=== PATIENT | female | born 1965 | race Caucasian/White ===

== ENCOUNTER 2017-10-23 07:57 | Day surgery (SDC) | payer OTHER ==
[2017-10-18 10:41] LABS: BASOPHILS % (AUTO) 0.7 % (0-1); EOSINOPHILS # (AUTO) 0.2 X10'3 (0-0.9); EOSINOPHILS % (AUTO) 2.8 % (0-6); LYMPHOCYTES # (AUTO) 1.6 X10'3 (1.1-4.8); LYMPHOCYTES % (AUTO) 29.1 % (21-51); MEAN CORPUSCULAR HEMOGLOBIN 29.9 PG (27.0-31.0); MEAN CORPUSCULAR VOLUME 88.1 FL (78-98); MEAN PLATELET VOLUME 8.6 FL (7.4-10.4); MONOCYTES # (AUTO) 0.4 X10'3 (0-0.9); MONOCYTES % (AUTO) 6.8 % (2-12); NEUTROPHILS # (AUTO) 3.4 X10'3 (1.8-7.7); NEUTROPHILS % (AUTO) 60.6 % (42-75); PRE OP HEMOGLOBIN 14.6 g/dL (12.0-16.0); PRE OP PLATELET COUNT 214 X10'3 (140-440); RED BLOOD COUNT 4.88 X10'6 (4.20-5.60)
[2017-10-18 10:45] LABS: CLARITY,URINE Cloudy (Clear); COLOR,URINE Yellow (Yellow); GLUCOSE, URINE Negative (Neg); KETONES,URINE Negative (Neg); LEUKOCYTE ESTERASE ,URINE Small (Neg); NITRITES, URINE Negative (Neg); OCCULT BLOOD,URINE Negative (Neg); PROTEIN,URINE Negative (Neg)
[2017-10-18 10:50] LABS: UA COLLECTION TYPE NON-SPECIFIED
[2017-10-18 10:51] LABS: BACTERIA,URINE FEW /HPF (Neg); MUCUS STRANDS FEW /LPF (Neg); RBC,URINE NONE SEEN /HPF (0-2); SQUAMOUS EPITHELIAL CELL,UR FEW /LPF (FEW); WBC,URINE 0-4 /HPF (0-4)
[2017-10-18 10:57] LABS: ALBUMIN 4.1 G/DL (3.4-5.0); ALBUMIN/GLOBULIN RATIO 1.1 (1.1-1.5); ALKALINE PHOSPHATASE 35 IU/L (46-116); BLOOD UREA NITROGEN 13 MG/DL (7-18); BUN/CREATININE RATIO 18.3 (6.6-38.0); CALCIUM 9.4 MG/DL (8.5-10.1); CHLORIDE 107 MMOL/L (99-107); CREATININE 0.71 MG/DL (0.40-0.90); PRE OP ALT 26 U/L (30-65); PRE OP ANION GAP 7 (8-16); PRE OP AST 14 U/L (10-37); PRE OP BILIRUB, TOTAL 0.4 MG/DL (0.0-1.0); PRE OP GLUCOSE 97 MG/DL (70-104); PRE OP POTASSIUM 4.4 MMOL/L (3.4-5.1); PRE OP SODIUM 143 MMOL/L (135-145); TOTAL CARBON DIOXIDE 29.4 MMOL/L (24-32); TOTAL PROTEIN 7.8 G/DL (6.4-8.2); eGFR 86 ML/MIN
[~2017-10-23] VITALS: Ht 147.3 cm; Wt 58.5 kg
[2017-10-23] VITALS (13 sets, daily range): BP systolic 137–171; BP diastolic 75–90
[~2017-10-23 07:57] MED LIST: ASPI-1265 PO; CHOL400T14 PO; LISI1TAB11 PO; LOVA20TA2 PO; MULT-1085 PO; SYN0.088T PO; [UNRECOGNIZED DRUG - OTHER]; clindamycin-Cleocin 900mg/D5W 50 ML IV ONE; famotidine 20mg tablet PO ONE; ringers solution, lacted 1,000 ML IV SCH
[2017-10-23] MEDS ORDERED: BUPIVAcaine/PF 2.5 mg/ml (0.25%) 30ml vial ONE (09:16)
[2017-10-23] MEDS ORDERED: ceFAZolin 1000mg inj ONE (09:16)
[2017-10-23] MEDS ORDERED: midazolam 2 mg/2 ml injection ONE (09:28)
[2017-10-23] MEDS ORDERED: fentaNYL/PF 50MCG/1 ML 2ML syringe ONE (09:28)
[2017-10-23] MEDS ORDERED: sevoflurane 250ml liquid IH ONE (09:29)
[2017-10-23] MEDS ORDERED: rocuronium 10mg/ml inj IV ONE (09:37)
[2017-10-23] MEDS ORDERED: propofol inj 20 ML IV ONE (09:37)
[2017-10-23] MEDS ORDERED: LIDOcaine 2% (20mg/ml) 5ml vial ONE (09:37)
[2017-10-23] MEDS ORDERED: ePHEDrine 50MG/ML INJ. ONE (09:48)
[2017-10-23] MEDS ORDERED: ondansetron/PF 4mg/2ml inj ONE (10:08)
[2017-10-23] MEDS ORDERED: glycopyrrolate 0.2mg/ml inj ONE (10:08)
[2017-10-23] MEDS ORDERED: neostigmine methylsulfate 1 MG/ML 10ml vial ONE (10:08)
[2017-10-23] MEDS ORDERED: meperidine/PF 25mg/ml syringe ONE (10:26)
[2017-10-23] MEDS ORDERED: ringers solution, lacted 1,000 ML IV SCH (10:27)
[2017-10-23] MEDS ORDERED: meperidine/PF 25mg/ml syringe IV PRN ×2 (10:30)
[2017-10-23] MEDS ORDERED: proCHLORperazine 10 MG/2 ml inj IV PRN (10:30)
[2017-10-23] MEDS ORDERED: ondansetron/PF 4mg/2ml inj IV PRN (10:30)
[2017-10-23] MEDS: meperidine/PF 25mg/ml syringe IV PRN ×2 (10:42→11:35)
[2017-10-23] MEDS ORDERED: ketorolac trometh. 30mg/ml inj. IM ONE (11:40)
[2017-10-23] MEDS ORDERED: acetaminophen 1,000mg/100ml IV 100 ML IV SCH (11:43)
== END 2017-10-23 12:05 | disposition home or self-care (01) ==
LOC: PAS 07:57
PROVIDERS: ATTEND Surgery
DX: K42.9 Umbilical hernia without obstruction or gangrene (principal); E03.9 Hypothyroidism, unspecified; I10 Essential (primary) hypertension; M85.88 Other specified disorders of bone density and structure, other site; E78.00 Pure hypercholesterolemia, unspecified; M19.90 Unspecified osteoarthritis, unspecified site; M19.042 Primary osteoarthritis, left hand; M19.041 Primary osteoarthritis, right hand; Z88.0 Allergy status to penicillin; Z88.6 Allergy status to analgesic agent; Z98.890 Other specified postprocedural states; Z79.82 Long term (current) use of aspirin; Z79.899 Other long term (current) drug therapy
CPT/HCPCS: 36415; 49652; 80053; 81001; 85025; 87088; 93005; C1713; C1758; C1781; J0131; J1885; J2001; J2175; J2250; J2270; J2405; J2704; J2710; J3010; J3490; J7030; J7120; A7000; J0690

== ENCOUNTER 2023-09-21 12:12 | Emergency (ER) | payer BC, OTHER ==
[~2023-09-21] VITALS: Ht 147.3 cm; Wt 52.3 kg
[~2023-09-21 12:12] MED LIST changes: -LISI1TAB11 PO; +LISI1TAB51 PO; -clindamycin-Cleocin 900mg/D5W 50 ML IV ONE; -famotidine 20mg tablet PO ONE; -ringers solution, lacted 1,000 ML IV SCH
[2023-09-21] MEDS ORDERED: mupirocin 2% ointment 22GM TP STA (13:00)
[2023-09-21] MEDS ORDERED: TETanus/Pertussis (Acell)/Diphther VAC/PF (Tdap-Adult) 0.5ml syringe IMVAC ONE (13:40)
[2023-09-21] MEDS ORDERED: LIDOCAINE 1%/EPI 1:100,000 inj. 10 ML multi-dose vial IJ ONE (13:45)
[2023-09-21] MEDS ORDERED: TRAM50TA2 PO (14:29)
[2023-09-21 15:40] VITALS: BP 132/78; PULSE 76; RESP 18; TEMP 98.1; O2SAT 98
== END 2023-09-21 15:45 | disposition still patient (30) ==
LOC: ER 12:13
DX: S61.412A Laceration without foreign body of left hand, initial encounter (principal); X58.XXXA Exposure to other specified factors, initial encounter; Y93.89 Activity, other specified; Y92.89 Other specified places as the place of occurrence of the external cause; Y99.8 Other external cause status
CPT/HCPCS: 12002; 73130; 90471; 90715; 99284; A6446